=== PATIENT | female | born 1955 | race Caucasian/White ===

== ENCOUNTER 2022-02-02 09:22 | Emergency (ER) | payer MEDICARE ==
[~2022-02-02] VITALS: Ht 149.9 cm; Wt 91.0 kg
[2022-02-02 11:07] LABS: HEMATOCRIT 52.6 % (37.0-47.0); IMMATURE GRANULOCYTES 0.1 % (0.0-5.0); MEAN CELL VOLUME 91.8 fL CALC (80.0-100.0); MEAN CORPUSCULAR HGB 27.9 pG CALC (26.0-32.0); MEAN CORPUSCULAR HGB CONC 30.4 g/dL CAL (32.0-36.0); NEUT# 6.98 thou/uL (2.00-7.15); RED BLOOD COUNT 5.73 mill/uL (4.20-5.60); RED CELL DISTRI WIDTH 19.5 % (11.5-15.5)
[2022-02-02 11:32] LABS: ALBUMIN 4.3 g/dL (3.2-5.0); ALKALINE PHOSPHATASE 188 u/l (38-126); AMYLASE 58 u/l (30-110); ANION GAP 15 (6-22 (CALC)); BILIRUBIN, TOTAL 1.3 mg/dL (0.0-1.4); BUN 13 mg/dL (8-23); BUN/CREATININE RATIO 25 (12-20 (CALC)); CARBON DIOXIDE 21 mmol/l (22-30); CHLORIDE 103 mmol/l (95-108); CREATININE 0.5 mg/dL (0.5-1.0); GFR FOR AFR.AMER. > 60 ML/MIN (>=60 (CALC)); GFR OTHER RACES > 60 ML/MIN (>=60 (CALC)); LIPASE 119 u/l (23-300); POTASSIUM 4.5 mmol/l (3.5-5.1); SGOT/AST 514 u/l (9-36); SODIUM 134 mmol/l (137-146)
[2022-02-02 11:44] LABS: MYOGLOBIN 36 ng/mL (0 - 62)
[2022-02-02 14:07] LABS: URINE BLOOD DIPSTICK NEGATIVE (NEGATIVE); URINE COLOR YELLOW; URINE GLUCOSE - DIPSTICK NEGATIVE (NEGATIVE); URINE KETONE >=80 mg/dL (NEGATIVE); URINE LEUK ESTERASE NEGATIVE (NEGATIVE); URINE PROTEIN - DIPSTICK NEGATIVE (NEG-TRACE); URINE SPECIFIC GRAVITY 1.025; URINE UROBILINOGEN - DIPSTICK 0.2 E.U./dL (0.2)
[2022-02-02 14:08] LABS: URINE BILIRUBIN - DIPSTICK SMALL (NEGATIVE); URINE NITRITE - DIPSTICK NEGATIVE (Negative)
[2022-02-02 16:52] VITALS: BP 145/69
[2022-02-02] MEDS ORDERED: ONDANSETRON4 MG PO (16:53)
[2022-02-02] MEDS ORDERED: ULTRAM50 M1 PO (16:53)
[2022-02-03] MEDS ORDERED: LYRICA200 MG PO (11:21)
[2022-02-03] MEDS ORDERED: MIRTAZAPINE15 MG PO (11:22)
[2022-02-03] MEDS ORDERED: FAMOTIDINE20 M1 PO (11:22)
[2022-02-03] MEDS ORDERED: CELEBREX100 M1 PO (11:23)
[2022-02-03] MEDS ORDERED: FLONASE SE27.5 MCG/S (11:23)
[2022-02-03] MEDS ORDERED: MONTELUKAST SOD10 MG PO (11:23)
[2022-02-03] MEDS ORDERED: HYDROCODONE BIT10 MG (11:26)
[2022-02-03] MEDS ORDERED: PRAMIPEXOLE DIHY1 MG PO (13:58)
== END 2022-02-02 17:18 | disposition home or self-care (01) ==
LOC: ED 09:22
PROVIDERS: Emergency Medicine
DX: R10.9 Unspecified abdominal pain (principal); R74.8 Abnormal levels of other serum enzymes; R11.2 Nausea with vomiting, unspecified; R19.7 Diarrhea, unspecified; M79.7 Fibromyalgia; L40.9 Psoriasis, unspecified
CPT/HCPCS: Q9967

== ENCOUNTER 2022-02-03 09:02 | Observation (INO) | payer MEDICARE ==
[2022-02-03] VITALS (24 sets, daily range): BP systolic 130–216; BP diastolic 60–113
[~2022-02-03] VITALS: Ht 149.9 cm; Wt 88.0 kg
[~2022-02-03 09:02] MED LIST: ONDANSETRON4 MG PO; ULTRAM50 M1 PO
[2022-02-03 10:01] LABS: HEMATOCRIT 48.3 % (37.0-47.0); HEMOGLOBIN 14.9 g/dl (12.0-16.0); IMMATURE GRANULOCYTES 0.1 % (0.0-5.0); MEAN CELL VOLUME 89.4 fL CALC (80.0-100.0); MEAN CORPUSCULAR HGB 27.6 pG CALC (26.0-32.0); MEAN CORPUSCULAR HGB CONC 30.8 g/dL CAL (32.0-36.0); NEUT# 8.3 thou/uL (2.00-7.15); RED BLOOD COUNT 5.4 mill/uL (4.20-5.60); RED CELL DISTRI WIDTH 19.2 % (11.5-15.5)
[2022-02-03 10:08] LABS: ALKALINE PHOSPHATASE 173 u/l (38-126); AMYLASE 55 u/l (30-110); ANION GAP 16 (6-22 (CALC)); BILIRUBIN, TOTAL 0.8 mg/dL (0.0-1.4); BUN 8 mg/dL (8-23); BUN/CREATININE RATIO 17 (12-20 (CALC)); CARBON DIOXIDE 19 mmol/l (22-30); CHLORIDE 103 mmol/l (95-108); CREATININE 0.5 mg/dL (0.5-1.0); GFR FOR AFR.AMER. > 60 ML/MIN (>=60 (CALC)); GFR OTHER RACES > 60 ML/MIN (>=60 (CALC)); LIPASE 95 u/l (23-300); POTASSIUM 3.6 mmol/l (3.5-5.1); SGOT/AST 161 u/l (9-36); SODIUM 135 mmol/l (137-146); TOTAL PROTEIN 7.5 g/dL (6.3-8.2)
[2022-02-03] MEDS ORDERED: LYRICA200 MG PO (11:21)
[2022-02-03] MEDS ORDERED: FAMOTIDINE20 M1 PO (11:22)
[2022-02-03] MEDS ORDERED: MIRTAZAPINE15 MG PO (11:22)
[2022-02-03] MEDS ORDERED: CELEBREX100 M1 PO (11:23)
[2022-02-03] MEDS ORDERED: MONTELUKAST SOD10 MG PO (11:23)
[2022-02-03] MEDS ORDERED: FLONASE SE27.5 MCG/S (11:23)
[2022-02-03] MEDS ORDERED: HYDROCODONE BIT10 MG (11:26)
[2022-02-03] MEDS ORDERED: PRAMIPEXOLE DIHY1 MG PO (13:58)
[2022-02-04] VITALS (8 sets, daily range): BP systolic 114–149; BP diastolic 66–75
[2022-02-04 06:21] LABS: HEMATOCRIT 46.4 % (37.0-47.0); HEMOGLOBIN 14.4 g/dl (12.0-16.0); MEAN CELL VOLUME 90.6 fL CALC (80.0-100.0); MEAN CORPUSCULAR HGB 28.1 pG CALC (26.0-32.0); RED BLOOD COUNT 5.12 mill/uL (4.20-5.60); RED CELL DISTRI WIDTH 19.3 % (11.5-15.5)
[2022-02-04 06:43] LABS: ANION GAP 11 (6-22 (CALC)); BUN 7 mg/dL (8-23); BUN/CREATININE RATIO 15 (12-20 (CALC)); CARBON DIOXIDE 22 mmol/l (22-30); CHLORIDE 109 mmol/l (95-108); CREATININE 0.5 mg/dL (0.5-1.0); GFR FOR AFR.AMER. > 60 ML/MIN (>=60 (CALC)); GFR OTHER RACES > 60 ML/MIN (>=60 (CALC)); MAGNESIUM 2.2 mg/dL (1.6-2.3); POTASSIUM 3.4 mmol/l (3.5-5.1); SODIUM 138 mmol/l (137-146)
[2022-02-04 10:51] LABS: ALBUMIN 3.4 g/dL (3.2-5.0); BILIRUBIN, TOTAL 0.6 mg/dL (0.0-1.4); TOTAL PROTEIN 6.3 g/dL (6.3-8.2)
[2022-02-05] VITALS (7 sets, daily range): BP systolic 104–141; BP diastolic 56–75
[2022-02-05 05:33] LABS: HEMATOCRIT 43.6 % (37.0-47.0); HEMOGLOBIN 13.6 g/dl (12.0-16.0); MEAN CORPUSCULAR HGB 28.7 pG CALC (26.0-32.0); MEAN CORPUSCULAR HGB CONC 31.2 g/dL CAL (32.0-36.0); RED BLOOD COUNT 4.74 mill/uL (4.20-5.60); RED CELL DISTRI WIDTH 19.1 % (11.5-15.5)
[2022-02-05 06:02] LABS: ALBUMIN 3.1 g/dL (3.2-5.0); ALKALINE PHOSPHATASE 122 u/l (38-126); ANION GAP 10 (6-22 (CALC)); BILIRUBIN, TOTAL 0.5 mg/dL (0.0-1.4); BUN 6 mg/dL (8-23); BUN/CREATININE RATIO 16 (12-20 (CALC)); CARBON DIOXIDE 28 mmol/l (22-30); CHLORIDE 103 mmol/l (95-108); CREATININE 0.4 mg/dL (0.5-1.0); GFR FOR AFR.AMER. > 60 ML/MIN (>=60 (CALC)); GFR OTHER RACES > 60 ML/MIN (>=60 (CALC)); MAGNESIUM 2.1 mg/dL (1.6-2.3); POTASSIUM 3.1 mmol/l (3.5-5.1); SGOT/AST 46 u/l (9-36); SODIUM 138 mmol/l (137-146); TOTAL PROTEIN 5.9 g/dL (6.3-8.2)
[2022-02-06 00:11] VITALS: BP 116/60
[2022-02-06 04:24] VITALS: BP 125/71
[2022-02-06 05:02] LABS: HEMATOCRIT 39.1 % (37.0-47.0); HEMOGLOBIN 12.1 g/dl (12.0-16.0); IMMATURE GRANULOCYTES 0.2 % (0.0-5.0); MEAN CELL VOLUME 90.9 fL CALC (80.0-100.0); MEAN CORPUSCULAR HGB 28.1 pG CALC (26.0-32.0); MEAN CORPUSCULAR HGB CONC 30.9 g/dL CAL (32.0-36.0); NEUT# 4.06 thou/uL (2.00-7.15); RED BLOOD COUNT 4.3 mill/uL (4.20-5.60); RED CELL DISTRI WIDTH 18.9 % (11.5-15.5)
[2022-02-06 05:30] LABS: ALBUMIN 2.9 g/dL (3.2-5.0); ALKALINE PHOSPHATASE 97 u/l (38-126); ANION GAP 6 (6-22 (CALC)); BILIRUBIN, TOTAL 0.5 mg/dL (0.0-1.4); BUN 8 mg/dL (8-23); BUN/CREATININE RATIO 18 (12-20 (CALC)); CARBON DIOXIDE 31 mmol/l (22-30); CHLORIDE 102 mmol/l (95-108); CREATININE 0.4 mg/dL (0.5-1.0); GFR FOR AFR.AMER. > 60 ML/MIN (>=60 (CALC)); GFR OTHER RACES > 60 ML/MIN (>=60 (CALC)); MAGNESIUM 2.2 mg/dL (1.6-2.3); SGOT/AST 41 u/l (9-36); SODIUM 135 mmol/l (137-146); TOTAL PROTEIN 5.6 g/dL (6.3-8.2)
[2022-02-06 05:37] LABS: POTASSIUM 3.9 mmol/l (3.5-5.1)
[2022-02-06 06:37] VITALS: BP 135/67
[2022-02-06 11:15] VITALS: BP 91/60
[2022-02-06 13:12] VITALS: BP 91/60
== END 2022-02-06 15:12 | disposition home health service (06) ==
LOC: ED 09:02 → ED-I 09:19 → ED 09:19 → ED-I 12:00 → ED 13:11 → MS2 13:12
PROVIDERS: Emergency Medicine; Nurse Practitioner; ADMIT Hospitalist; ATTEND Hospitalist
DX: R11.2 Nausea with vomiting, unspecified (principal); R10.9 Unspecified abdominal pain; I10 Essential (primary) hypertension; J44.9 Chronic obstructive pulmonary disease, unspecified; R09.02 Hypoxemia; M54.50 Low back pain, unspecified; G89.29 Other chronic pain; G47.33 Obstructive sleep apnea (adult) (pediatric); E87.6 Hypokalemia; M79.7 Fibromyalgia; R74.01 Elevation of levels of liver transaminase levels; G25.81 Restless legs syndrome; Z79.891 Long term (current) use of opiate analgesic; Z20.822 Contact with and (suspected) exposure to COVID-19
CPT/HCPCS: G0378; J1650